=== PATIENT | male | born 1980 | race Caucasian/White ===

== ENCOUNTER 2019-08-08 00:33 | Emergency (ER) | payer SELFPAY ==
--- NOTE | 2019-08-08 01:14 | EDM.PDOC ---
ED HPI GENERAL MEDICAL PROBLEM - General Chief Complaint: Upper Extremity Injury/Pain Stated Complaint: SLIPPED AND INJURED LEFT HAND Time Seen by Provider: 08/08/19 00:44 Source of Information: Reports: Patient History Limitations: Reports: No Limitations - History of Present Illness INITIAL COMMENTS - FREE TEXT/NARRATIVE: Mr. Samuel is a very pleasant 39-year-old man with no chronic medical issues, who states that he slipped and fell while in his garage around 21:00 to 22:00 tonight, striking the back of his hand on something metallic. He presents with pain and swelling to the dorsum of his left hand. No prior left hand injury. The patient is otherwise uninjured. The patient does not have a PCP. He has not received an influenza vaccine this season, and declined an offer for one today. His last tetanus vaccination was more than 10 years ago, but he declined an offer for a booster today. Left Hand Pain Score (Numeric/FACES): 10 - Related Data Allergies Allergy/AdvReac Type Severity Reaction Status Date / Time No Known Allergies Allergy Verified 08/08/19 00:42 Home Meds: Home Meds . [No Known Home Meds] 08/08/19 [History] Past Medical History Endocrine/Metabolic History: Reports: Obesity/BMI 30+ - Past Surgical History HEENT Surgical History: Reports: Oral Surgery (wisdom teeth extracted) Dermatological Surgical History: Reports: Other (See Below) (Lipoma excised off abdomen) Social & Family History - Tobacco Use Smoking Status *Q: Former Smoker Tobacco Use Within Last Twelve Months: Smokeless Tobacco (Chews 1/3 can per day) Years of Tobacco use: 15 Packs/Tins Daily: 0.5 Month/Year Tobacco Last Used: Quit Jul 2019 - Alcohol Use Alcohol Use History: Yes Alcohol Use Frequency: Rarely - Recreational Drug Use Recreational Drug Use: No - Living Situation & Occupation Living situation: Reports: , with Spouse, with Family (2 kids) Occupation: Employed (intermodal owner operator truck driver) Review of Systems - Review of Systems Review Of Systems: Comprehensive ROS is negative, except as noted in HPI. ED EXAM, GENERAL - Physical Exam Exam: See Below Exam Limited By: No Limitations General Appearance: Alert, WD/WN, No Apparent Distress Extremities: Other (There is an approximately 4 mm diameter blood blister to the dorsal aspect of the patient's left hand, 3rd and 4th metacarpals. The dorsum of the patient's left hand is swollen, and there is mild associated erythema. Dorsum of the hand is very tender to palpation, and the patient reports pain to movement of his fingers. He denies tingling to his fingers. There is mild tenderness to palpation of the palm of the hand. No tenderness to palpation of the wrist or forearm. Vascular status of the left upper extremity is intact.) Course - Vital Signs Last Recorded V/S: Last Vital Signs Temp 37.1 C 08/08/19 00:42 Pulse 94 08/08/19 00:42 Resp 18 08/08/19 00:42 BP 191/92 H 08/08/19 00:42 Pulse Ox 98 08/08/19 00:42 - Orders/Labs/Meds Orders: Active Orders 24 hr Category Date Time Status Hand Comp Min 3V Lt [CR] Stat Exams 08/08/19 01:05 Ordered - Re-Assessments/Exams Free Text/Narrative Re-Assessment/Exam: 08/08/19 01:06 The patient has swelling and tenderness, primarily to the dorsal aspect of his left hand, after he fell and struck something earlier tonight. I have ordered x- rays to evaluate for a fracture. 08/08/19 01:20 4-view radiographs of the left hand appear to be normal. No fracture or dislocation identified. Formal read per the Radiologist pending. 08/08/19 01:22 X-ray results discussed with the patient. As above, no fractures are seen. He appears to have contused the dorsum of his hand. I am recommending that he apply ice to the dorsum of his hand is much as possible the next 2 days, to help minimize swelling. Ibuprofen will likely work better than Tylenol for pain control. The patient declined an offer for a note for work, stating that he intends to return to work tonight. Departure - Departure Time of Disposition: 01:23 Disposition: Home, Self-Care 01 Condition: Good Clinical Impression: Contusion of left hand - Discharge Information *PRESCRIPTION DRUG MONITORING PROGRAM REVIEWED*: Not Applicable *COPY OF PRESCRIPTION DRUG MONITORING REPORT IN PATIENT JOEL: Not Applicable Referrals: PCP,None [Primary Care Provider] - Additional Instructions: You were seen in the emergency room after slipping and striking the back of your left hand earlier tonight. Workup in the ER included x-rays of your left hand, which returned normal. No broken bones or dislocations were seen. Based on your history and physical exam, and ER x-rays, you have contused ( bruised) the back of your left hand. We recommend that you apply an ice pack as much as possible to the back of your left hand for the next 2 days, to help minimize swelling. Take [id number] ibuprofen as needed for discomfort. If any other problems, please do not hesitate to return to the ER. Sepsis Event Note - Evaluation Sepsis Screening Result: No Definite Risk - Focused Exam Vital Signs: Vital Signs Temp Pulse Resp BP Pulse Ox 08/08/19 00:42 37.1 C 94 18 191/92 H 98 Date Exam was Performed: 08/08/19 Time Exam was Performed: 01:05 - My Orders Last 24 Hours: My Active Orders 08/08/19 01:05 Hand Comp Min 3V Lt [CR] Stat - Assessment/Plan Last 24 Hours: My Active Orders 08/08/19 01:05 Hand Comp Min 3V Lt [CR] Stat
--- NOTE | 2019-08-08 07:17 | CR ---
Left hand: Four views of left hand were obtained. Comparison: No prior hand exam. Joint spaces are maintained. No fracture, dislocation or other bony abnormality is seen. Impression: 1. No bony abnormality is identified on left hand exam. Diagnostic code #1 This report was dictated in [place] Standard Time
== END 2019-08-08 01:34 | disposition home or self-care (01) ==
LOC: JD.ED 00:33
DX: S60.222A Contusion of left hand, initial encounter (principal); Z87.891 Personal history of nicotine dependence; W01.0XXA Fall on same level from slipping, tripping and stumbling without subsequent striking against object, initial encounter
CPT/HCPCS: 73130-26-LT; 73130-LT; 99282; 99283-25